=== PATIENT | male | born 1985 | race Caucasian/White ===

== ENCOUNTER 2020-05-07 21:42 | Emergency (ER) | payer OTHER, SELFPAY ==
[2020-05-07 21:58] VITALS: BP 150/74; PULSE 97; RESP 18; O2SAT 98
[2020-05-07 22:00] VITALS: BP 150/74; PULSE 102; RESP 18; TEMP 37; O2SAT 99; BMI 27.1
--- NOTE | 2020-05-07 23:42 | PC.NURSE ---
Multiple raised and hard areas on arms/leg/neck from IV drug use. Tender to touch. Pt wanting rehab/detox.
[2020-05-07 23:59] LABS: COVID19 -Nasal RAPID Negative (Negative)
--- NOTE | 2020-05-08 00:11 | ED.SKABFB ---
HPI - Skin/Abscess/Foreign Bdy General Chief complaint: Skin/Abscess/Foreign Body Stated complaint: abscess's all over Time Seen by Provider: 05/07/20 21:50 Source: patient Mode of arrival: Ambulatory Limitations: no limitations History of Present Illness HPI narrative: 35-year-old gentleman with a history of opiate use disorder who presents with multiple areas of concern over his body for abscess formation. He has been using as much is 1.5 g of IV heroin a day over the last couple of days has been trying to cut back in his only been using half a g of heroin a day. He has limited IV access at this point and is resorting to multiple pokes and even using neck veins. He has seen at prescriber in [place] who is given him Subutex but he has not filled this. Over the last 2 and half years he has had episodes of little use, heavy use, Suboxone, Subutex and methadone use. He is interested in detox and does want to get to a healthier point and away from heroin. His biggest fear in restarting Suboxone his 1st 24 hours of withdrawal required. He notes that he gets very depressed and it takes about a week before he is feeling better. He has never tried to kill self and does not describe suicidal ideation. Related Data Home Medications Medication Instructions Recorded Confirmed Fexofenadine Hydrochloride 60 mg PO Q DAY #0 03/09/10 (Della) oxycodone-acetaminophen [Percocet] #0 06/01/17 Previous Rx's Medication Instructions Recorded hydrocodone-acetaminophen [[place]] 1 - 2 tab PO Q6HP PRN #5 tab 06/01/17 tamsulosin [Flomax] 0.4 mg PO QDAY #7 cap 06/01/17 buprenorphine-naloxone 3 film SL DAILY #15 each 05/08/20 clindamycin HCl 300 mg PO Q8H #21 cap 05/08/20 sulfamethoxazole-trimethoprim 1 tab PO BID #14 tab 05/08/20 Allergies Allergy/AdvReac Type Severity Reaction Status Date / Time No Known Drug Allergies Allergy Verified 05/07/20 22:31 Review of Systems Review of Systems Narrative: Pertinent positive and negative findings as per HPI Remainder of review of systems is otherwise unremarkable for Constitutional: Fevers, chills, weakness ENT: No sore throat, neck pain, ear pain CV: Chest pain, palpitations, dyspnea on exertion Respiratory: Cough, wheeze, dyspnea GI: Nausea, vomiting, diarrhea, change in bowel habits, black or bloody stools : Dysuria, hematuria, flank pain MS: Muscle weakness, numbness, joint swelling or warmth Neuro: Syncope, dizziness, tingling Patient History Medical History (Updated 05/08/20 @ 00:22 by Janki Pabon MD) Opioid use disorder (Acute) Social History Smoking Status: Current every day smoker Smoking Status: Current every day smoker alcohol intake frequency: 0-2 drinks per day Substance Use Type: heroin and methamphetamine Exam Narrative Exam Narrative: General: no acute distress. Able to give a complete and coherent history. HEENT: Moist mucous membranes, normal sclera with reactive pupils, Neck: No JVD, supple, right external jugular vessel with thrombophlebitis without cellulitis Respiratory: Lungs are clear to auscultation, no wheezing no rales no rhonchi. Full and symmetrical air movement Cardiac: Regular rate and rhythm no murmurs with careful auscultation, no bruits Abdomen: Soft nontender good bowel tones, no flank pain Skin: Warm and dry, multiple track tracy. Multiple areas of thrombophlebitis but no overt abscess, or cellulitis Neurologic: Grossly neurologically intact with no obvious asymmetries or abnormalities Extremities: No trauma, well perfused Psych: Cooperative, appropriate insight and affect Initial Vital Signs Initial Vital Signs: Vital Signs Pulse Rate 97 H 05/07/20 21:58 Respiratory Rate 18 05/07/20 21:58 Blood Pressure 150/74 H 05/07/20 21:58 Pulse Oximetry 98 05/07/20 21:58 Scores ABCD2 Citation: Lancet. 2006Sep 24;369(8166):283-92. Validation and refinement of scores to predict very early stroke risk after transient ischaemic attack. Haim SC1, Nel PM, Brianda MN, Jamison MF, Cyndi JS, Tyler AL, Antony S. Course Orders Ordered: ED Orders 05/07/20 23:35 COVID19 -ED/INPAT/OR/L&D Stat 05/08/20 00:15 Urinalysis and Microscopic Stat urine tox [Urine Drug Screen, Rapid] Stat Discontinued Medications Promethazine HCl (Phenergan 25 Mg Prepack) 1 bottle MISC SEEINSTR ONE Stop: 05/08/20 00:23 Last Admin: 05/08/20 00:56 Dose: 1 bottle Documented by: VALENTINE Vital Signs Vital signs: Vital Signs - 8 hr 05/07/20 21:58 05/07/20 22:00 05/08/20 01:03 Temperature 98.6 F 98.8 F Pulse Rate 97 H 102 H 89 Respiratory Rate 18 18 12 Blood Pressure 150/74 H 150/74 H 160/74 H Pulse Oximetry 98 99 96 MDM - Skin/Abscess/Foreign Bdy Medical Records Attestation: I reviewed the patient's medical records. Lab Data Labs: Lab Results 05/07/20 05/08/20 05/08/20 Range/Units 23:35 00:15 00:15 Urine Color Yellow Urine Appearance Clear Urine pH 5.5 (4.5-8.0) Ur Specific [place] >=1.030 H (1.000-1.035) Urine Protein Negative (Negative) Urine Glucose (UA) Negative (Negative) g/dL Urine Ketones Negative (NEGATIVE) Urine Occult Blood Negative (Negative) Urine Nitrate Negative (Negative) Urine Bilirubin Negative (NEGATIVE) Urine Urobilinogen 0.2 (0.2) E.U./dL Ur Leukocyte Esterase Negative (NEGATIVE) Urine RBC None seen (0-5/HPF) Urine WBC None seen (0-5/HPF) Urine Bacteria None seen (None) Ur Culture Indicated? Cult not indicated Micro UA Comment Microscopic normal U Opiates 300ng/mL cut Positive H (Negative) Ur Oxycodone Screen Negative (Negative) Urine Methadone Screen Negative (Negative) Ur Barbiturates Screen Negative (Negative) U Tricyclic Antidepress Negative (Negative) Ur Phencyclidine Scrn Negative (Negative) Ur Amphetamines Screen Positive H (Negative) U Methamphetamines Scrn Positive H (Negative) Ur MDMA Scrn (Ecstasy) Negative (Negative) U Benzodiazepines Scrn Negative (Negative) Urine Cocaine Screen Negative (Negative) U Marijuana (THC) Screen Negative (Negative) COVID-19 PCR Negative (Negative) MDM Narrative Medical decision making narrative: Opioid use disorder with no evidence of immediate abscess. Minor areas of superficial infection firm multiple different injection sites. He is interested in crisis respite. He understands the need for moderate withdrawal symptoms prior to starting buprenorphine. At home he has a written prescription for Subutex that he has not yet filled. Will give him a 5 day prescription [facility] He says in the past he has been successful with 32 mg of Subutex daily. As he describes using only half a g a day of heroin over the last week or so I am going to suggest that we start with 16 mg a suboxone in the morning and 8 mg in the evening. He will need to follow-up with his Suboxone provider in [place] once he is released from detox. He is medically clear for detox and has screened for detox, beds are available paperwork will be done. He will be discharged with Septra and clindamycin for superficial skin infections at various injection sites, Phenergan for nausea and 5 days of Suboxone, 24 mg a day. Discharge Plan Departure Patient Disposition: Home Clinical Impression: Opioid use disorder, Cellulitis Discharge Date/Time: 05/08/20 01:10 Instructions: DI for Substance Use Disorder, DI for Skin Abscess Activity Restrictions/Additional Instructions: Thank you for coming in today [facility] I hope that this detox day and getting transition to Suboxone will be a successful 1st step in pathway back to recovery For nausea, please use Phenergan every 8 hours as needed When you are in significant withdrawal you may take the 1st dose of Suboxone. As the heroin that you have been using very likely also includes fentanyl, with this 1st dose I would recommend beginning with 4 mg sublingual. As long as you are not feeling worse, you may take an additional 4 mg. If after 8 mg you still do not feel sick and are beginning to feel better but it feels like it is not enough, you may take an additional 8 mg. If at any point you begin to feel more ill, please spit-out the dose currently under your tongue and wait an additional 12 hours before you try again. Eventually the dose that I believe will be best for you to continue will be 16 mg sublingual in the morning, 8 mg sublingual at night. Covid screeing: No fever, no cough and no respiratory complaints suggestive of Covid. Rapid covid screen negative 05/08/2020 Prescriptions: New buprenorphine-naloxone 8-2 mg film 3 film SL DAILY Qty: 15 RF: 0 sulfamethoxazole-trimethoprim 800-160 mg tablet 1 tab PO BID Qty: 14 RF: 0 clindamycin HCl 300 mg capsule 300 mg PO Q8H Qty: 21 RF: 0 No Action Fexofenadine Hydrochloride (Della) 60 mg PO Q DAY Qty: 0 RF: 0 oxycodone-acetaminophen [Percocet] 5 MG/325 MG tablet Qty: 0 RF: 0 tamsulosin [Flomax] 0.4 MG capsule,extended release 24hr 0.4 mg PO QDAY Qty: 7 RF: 0 hydrocodone-acetaminophen [[place]] 5 MG/325 MG tablet 1 - 2 tab PO Q6HP PRNQty: 5 RF: 0
[2020-05-08 00:23] LABS: Bacteria Urine None Seen; RBC Urine None Seen (0-5/HPF); WBC Urine None Seen (0-5/HPF)
[2020-05-08 00:28] LABS: Appearance Urine UA CLEAR; Bilirubin Urine UA NEGATIVE (NEGATIVE); Color Urine UA YELLOW; Glucose Urine UA NEGATIVE (Negative); Ketones Urine UA NEGATIVE (NEGATIVE); Leukocyte Esterase Urine UA NEGATIVE (NEGATIVE); Nitrite Urine UA NEGATIVE (Negative); Occult Blood Urine UA NEGATIVE (Negative); Protein Urine UA NEGATIVE (Negative); Specific Gravity Urine UA >=1.030 (1.000-1.035); Urobilinogen Urine UA 0.2 E.U./dL (0.2); pH Urine UA 5.5 (4.5-8.0)
[2020-05-08 00:29] LABS: UR Morphine/Opiate cutoff 300 Positive (Negative); Ur Creatinine Normal (Normal); Ur Specific Gravity Normal (Normal); Urine Amphetamines Positive (Negative); Urine Cocaine Negative (Negative); Urine Methamphetamines Positive (Negative); Urine Tetrahydrocannabinol Negative (Negative); Urine pH Normal (Normal)
[2020-05-08 00:30] LABS: Urine Barbiturates Negative (Negative); Urine Benzodiazepines Negative (Negative); Urine MDMA Negative (Negative); Urine Methadone Negative (Negative); Urine Oxycodone Negative (Negative); Urine Phencyclidine Negative (Negative); Urine Tricyclic Antidepressant Negative (Negative)
[2020-05-08 00:32] LABS: Culture Indicated Urine Cult Not Indicated; Urine Comments Microscopic Normal
[2020-05-08] MEDS: PROMETHAZINE 25 MG PREPACK 1 BOTTLE MISC (00:56)
[2020-05-08 01:03] VITALS: BP 160/74; PULSE 89; RESP 12; TEMP 37.1; O2SAT 96
== END 2020-05-08 01:10 | disposition home or self-care (01) ==
PROVIDERS: Emergency Provider Emergency Medicine
DX: L03.818 Cellulitis of other sites (principal); L02.818 Cutaneous abscess of other sites; F11.99 Opioid use, unspecified with unspecified opioid-induced disorder
CPT/HCPCS: 80305; 81001; 87635; 99281; 99283

== ENCOUNTER 2020-12-18 15:21 | Observation (INO) | payer OTHER, SELFPAY ==
[2020-12-18] VITALS (17 sets, daily range): BP systolic 126–151; BP diastolic 87–99; PULSE 95–132; RESP 15–68; TEMP 36.6–37.1; O2SAT 94–100; BMI 27.8
--- NOTE | 2020-12-18 15:37 | ED_ITS ---
HPI - Skin/Abscess/Foreign Bdy <Marian Vernon DO - Last Filed: 12/19/20 07:59> General Chief complaint: Skin/Abscess/Foreign Body Stated complaint: abscess on neck Time Seen by Provider: 12/18/20 15:32 Source: patient and old records reviewed Mode of arrival: Ambulatory Limitations: no limitations History of Present Illness HPI narrative: This is a 35-year-old male who comes to the emergency department with complaint of abscess in swelling of the left neck. Patient states that he has been injecting recently into that area and developed redness and swelling and signs of infection. He has not had any active fevers but has felt ill. He has pain at that area he denies any pain in the back of his neck other than that he has had discomfort from holding his head slightly turned from the swelling and discomfort. He denies any airway impingement, difficulty with breathing, no changes to voice, no stridor, wheezing, no shortness of breath or chest pain or pressure. He denies any nausea or vomiting. He denies any other GI or urinary symptoms. Patient states that he has had abscesses in multiple locations in the past. He was uncomfortable trying to drain it himself based on the location and came to the emergency department for assistance. Has used IV drugs intermittently. He has been on Subutex recently but states he has not had his last several doses. He denies any other medications regularly. Patient does use tobacco regularly. Related Data Previous Rx's Medication Instructions Recorded amoxicillin-pot clavulanate 1 tab PO BID #14 tab 12/19/20 [Augmentin] clindamycin HCl 300 mg PO TID #21 cap 12/19/20 Allergies Allergy/AdvReac Type Severity Reaction Status Date / Time No Known Drug Allergies Allergy Verified 05/07/20 22:31 Review of Systems <DO Sharlene Mccullough Last Filed: 12/19/20 07:59> Review of Systems ROS Unobtainable: All systems reviewed & are unremarkable except as noted in HPI and below Patient History <Marian Vernon DO - Last Filed: 12/19/20 07:59> Medical History Heroin abuse IVDU (intravenous drug user) Methamphetamine abuse Opioid use disorder Surgical History No history of previous surgery Family History Father Diabetes mellitus Mother Skin cancer Social History household members: spouse and children Smoking Status: Current every day smoker alcohol intake: former Smoking Status: Current every day smoker alcohol intake frequency: 0-2 drinks per day Substance Use Type: heroin and methamphetamine Exam <Marian Vernon, DO - Last Filed: 12/19/20 07:59> Narrative Exam Narrative: GEN: Well-nourished male, alert and oriented x 3, patient appears to be in [id number] distress. HEENT: Atraumatic, pupils are equal round reactive to light, extraocular movements are intact, Throat is clear without any exudates, erythema, tonsillar enlargement or uvular deviation, patient has swelling, erythema and induration of the left neck at the sternoclavicular junction and just adjacent. Patient has tenderness to the area. There is an area of about 4 cm of swelling and erythema without any extension. Patient prefers to hold his neck rotated to the right and side bent right. But is able to rotate his neck. He does not have any tenderness of the cervical spine. No stridor, no hoarseness or muffled voice. Patient is able to swallow his secretions without issue. HEART: Regular rate and rhythm without murmur, clicks, rubs. LUNGS:Lungs clear to auscultation, no wheezes, rales, crackles, chest moves symmetrically ABD:bowel sounds normal, soft, non-tender, no guarding, rebound, rigidity, no masses noted, no hepatosplenomegaly MSCL: Non-tender, full range of motion, normal gait NEURO:CN 2-12 intact, sensation normal SKIN: Please see above. Patient does have skin changes consistent with prior abscess is healing in varying stages. Initial Vital Signs Initial Vital Signs: Vital Signs Temperature 98.7 F 12/18/20 15:27 Pulse Rate 118 H 12/18/20 15:27 Respiratory Rate 18 12/18/20 15:27 Blood Pressure 137/99 H 12/18/20 15:27 Pulse Oximetry 96 12/18/20 15:27 <Jan Garcia, DO - Last Filed: 12/18/20 22:23> Initial Vital Signs Initial Vital Signs: Vital Signs Temperature 98.7 F 12/18/20 15:27 Pulse Rate 118 H 12/18/20 15:27 Respiratory Rate 18 12/18/20 15:27 Blood Pressure 137/99 H 12/18/20 15:27 Pulse Oximetry 96 12/18/20 15:27 Course <Marian Vernon, DO - Last Filed: 12/19/20 07:59> Orders Ordered: Discontinued Medications Al Hydrox/Mg Hydrox/Simethicone (Mag Hydrox/Alum/Simeth 30 Ml Udc) 30 ml PO Q6HR PRN PRN Reason: Dyspepsia Amoxicillin/Clavulanate Potassium (Amoxicillin/Clav 875/125 Mg) 1 tab PO BID DANIEL Last Admin: 12/18/20 23:09 Dose: 1 tab Documented by: VENUS Enoxaparin Sodium (Enoxaparin 40 Mg/0.4 Ml Syringe) 40 mg SUBCUT DAILY [facility] Hydroxyzine Pamoate (Hydroxyzine Pamoate 25 Mg Capsule) 50 mg PO Q6HR PRN PRN Reason: Agitation Sodium Chloride (Normal Saline 0.9%) 1,000 mls @ 1,000 mls/hr IV BOLUS ONE Stop: 12/18/20 20:14 Last Infusion: 12/18/20 21:18 Dose: 0 mls/hr Documented by: Admin: 12/18/20 19:26 Dose: 1,000 mls/hr Documented by: DAE Clindamycin Phosphate (Cleocin) 900 mg in 50 mls @ 50 mls/hr IV NOW ONE Stop: 12/18/20 20:14 Last Infusion: 12/18/20 19:54 Dose: 0 mls/hr Documented by: Admin: 12/18/20 19:28 Dose: 50 mls/hr Documented by: DAE Lactated Ringer's (Lactated Ringers) 1,000 mls @ 100 mls/hr IV CONT DANIEL Last Admin: 12/18/20 22:48 Dose: 100 mls/hr Documented by: VENUS Clindamycin Phosphate (Cleocin) 600 mg in 50 mls @ 50 mls/hr IV Q8H DANIEL Clindamycin Phosphate (Cleocin) 600 mg in 50 mls @ 50 mls/hr IV Q8H [facility] Last Admin: 12/19/20 03:02 Dose: Not Given Documented by: KEISHA Ibuprofen (Ibuprofen 600 Mg Tablet) 600 mg PO Q6HR PRN PRN Reason: Fever/Mild Pain (1-3) Last Admin: 12/18/20 23:09 Dose: 600 mg Documented by: VENUS Ketorolac Tromethamine (Ketorolac 60 Mg/2 Ml Vial) 30 mg IV NOW ONE Stop: 12/18/20 16:07 Last Admin: 12/18/20 19:32 Dose: Not Given Documented by: DAE Ketorolac Tromethamine (Ketorolac 60 Mg/2 Ml Vial) 30 mg IM NOW ONE Stop: 12/18/20 16:51 Last Admin: 12/18/20 19:33 Dose: Not Given Documented by: DAE Ketorolac Tromethamine (Ketorolac 60 Mg/2 Ml Vial) 60 mg IM NOW ONE Stop: 12/18/20 17:09 Last Admin: 12/18/20 17:09 Dose: 60 mg Documented by: SWATHI Lidocaine/Epinephrine (Lidocaine 1% W/Epi) 4 ml INJ INTRA-OP ONE Stop: 12/18/20 21:02 Last Admin: 12/18/20 21:06 Dose: 4 ml Documented by: DAE Lorazepam (Lorazepam 1 Mg Tablet) 1 mg PO Q4HR [facility]; Protocol Last Admin: 12/19/20 03:02 Dose: Not Given Documented by: KEISHA Naloxone HCl (Naloxone 0.4 Mg/Ml Vial) 0.2 mg IV Q2MIN PRN PRN Reason: Opiate Reversal Nicotine (Nicotine 21 Mg Patch) 21 mg TOP NOW ONE Stop: 12/18/20 17:09 Last Admin: 12/18/20 17:14 Dose: 21 mg Documented by: SWATHI Ondansetron HCl (Ondansetron 4 Mg/2 Ml Inj) 4 mg IV Q8HR [facility] Last Admin: 12/19/20 03:02 Dose: Not Given Documented by: KEISHA Pantoprazole Sodium (Pantoprazole 20 Mg Tablet) 20 mg PO 0600 [facility] Trazodone HCl (Trazodone 50 Mg Tablet) 50 mg PO BEDTIME [facility] Last Admin: 12/19/20 00:48 Dose: 50 mg Documented by: KEISHA Reevaluation(s) Reevaluation #1: Patient HR has increased while in department. Patient has been feeling like he is having some withdrawl symptoms. PICC line nurse is in room for access. Time: 18:23 Vital Signs Vital signs: Vital Signs - 8 hr 12/18/20 15:27 12/18/20 17:00 12/18/20 17:30 Temperature 98.7 F Pulse Rate 118 H 95 H 107 H Respiratory Rate 18 Blood Pressure 137/99 H Pulse Oximetry 96 97 96 12/18/20 18:00 12/18/20 18:10 12/18/20 18:11 Temperature Pulse Rate 125 H 132 H Respiratory Rate 22 Blood Pressure 151/99 H 151/99 H Pulse Oximetry 97 100 100 12/18/20 18:30 Temperature Pulse Rate 119 H Respiratory Rate 21 Blood Pressure Pulse Oximetry 98 <Jan Garcia DO - Last Filed: 12/18/20 22:23> Orders Ordered: Discontinued Medications Al Hydrox/Mg Hydrox/Simethicone (Mag Hydrox/Alum/Simeth 30 Ml Udc) 30 ml PO Q6HR PRN PRN Reason: Dyspepsia Amoxicillin/Clavulanate Potassium (Amoxicillin/Clav 875/125 Mg) 1 tab PO BID [facility] Last Admin: 12/18/20 23:09 Dose: 1 tab Documented by: VENUS Enoxaparin Sodium (Enoxaparin 40 Mg/0.4 Ml Syringe) 40 mg SUBCUT DAILY [facility] Hydroxyzine Pamoate (Hydroxyzine Pamoate 25 Mg Capsule) 50 mg PO Q6HR PRN PRN Reason: Agitation Sodium Chloride (Normal Saline 0.9%) 1,000 mls @ 1,000 mls/hr IV BOLUS ONE Stop: 12/18/20 20:14 Last Infusion: 12/18/20 21:18 Dose: 0 mls/hr Documented by: Admin: 12/18/20 19:26 Dose: 1,000 mls/hr Documented by: DAE Clindamycin Phosphate (Cleocin) 900 mg in 50 mls @ 50 mls/hr IV NOW ONE Stop: 12/18/20 20:14 Last Infusion: 12/18/20 19:54 Dose: 0 mls/hr Documented by: Admin: 12/18/20 19:28 Dose: 50 mls/hr Documented by: DAE Lactated Ringer's (Lactated Ringers) 1,000 mls @ 100 mls/hr IV CONT DANIEL Last Admin: 12/18/20 22:48 Dose: 100 mls/hr Documented by: VENUS Clindamycin Phosphate (Cleocin) 600 mg in 50 mls @ 50 mls/hr IV Q8H DANIEL Clindamycin Phosphate (Cleocin) 600 mg in 50 mls @ 50 mls/hr IV Q8H DANIEL Last Admin: 12/19/20 03:02 Dose: Not Given Documented by: KEISHA Ibuprofen (Ibuprofen 600 Mg Tablet) 600 mg PO Q6HR PRN PRN Reason: Fever/Mild Pain (1-3) Last Admin: 12/18/20 23:09 Dose: 600 mg Documented by: VENUS Ketorolac Tromethamine (Ketorolac 60 Mg/2 Ml Vial) 30 mg IV NOW ONE Stop: 12/18/20 16:07 Last Admin: 12/18/20 19:32 Dose: Not Given Documented by: DAE Ketorolac Tromethamine (Ketorolac 60 Mg/2 Ml Vial) 30 mg IM NOW ONE Stop: 12/18/20 16:51 Last Admin: 12/18/20 19:33 Dose: Not Given Documented by: DAE Ketorolac Tromethamine (Ketorolac 60 Mg/2 Ml Vial) 60 mg IM NOW ONE Stop: 12/18/20 17:09 Last Admin: 12/18/20 17:09 Dose: 60 mg Documented by: SWATHI Lidocaine/Epinephrine (Lidocaine 1% W/Epi) 4 ml INJ INTRA-OP ONE Stop: 12/18/20 21:02 Last Admin: 12/18/20 21:06 Dose: 4 ml Documented by: DAE Lorazepam (Lorazepam 1 Mg Tablet) 1 mg PO Q4HR [facility]; Protocol Last Admin: 12/19/20 03:02 Dose: Not Given Documented by: KEISHA Naloxone HCl (Naloxone 0.4 Mg/Ml Vial) 0.2 mg IV Q2MIN PRN PRN Reason: Opiate Reversal Nicotine (Nicotine 21 Mg Patch) 21 mg TOP NOW ONE Stop: 12/18/20 17:09 Last Admin: 12/18/20 17:14 Dose: 21 mg Documented by: SWATHI Ondansetron HCl (Ondansetron 4 Mg/2 Ml Inj) 4 mg IV Q8HR [facility] Last Admin: 12/19/20 03:02 Dose: Not Given Documented by: KEISHA Pantoprazole Sodium (Pantoprazole 20 Mg Tablet) 20 mg PO 0600 DANIEL Trazodone HCl (Trazodone 50 Mg Tablet) 50 mg PO BEDTIME [facility] Last Admin: 12/19/20 00:48 Dose: 50 mg Documented by: KEISHA Vital Signs Vital signs: Vital Signs - 8 hr 12/18/20 15:27 12/18/20 17:00 12/18/20 17:30 Temperature 98.7 F Pulse Rate 118 H 95 H 107 H Respiratory Rate 18 Blood Pressure 137/99 H Pulse Oximetry 96 97 96 12/18/20 18:00 12/18/20 18:10 12/18/20 18:11 Temperature Pulse Rate 125 H 132 H Respiratory Rate 22 Blood Pressure 151/99 H 151/99 H Pulse Oximetry 97 100 100 12/18/20 18:30 Temperature Pulse Rate 119 H Respiratory Rate 21 Blood Pressure Pulse Oximetry 98 MDM - Skin/Abscess/Foreign Bdy <Marian Vernon, - Last Filed: 12/19/20 07:59> Lab Data Attestation: I reviewed the patient's lab results. Result diagrams: 12/18/20 17:03 12/18/20 17:03 Labs: Lab Results 12/18/20 12/18/20 12/18/20 Range/Units 16:20 17:03 17:03 WBC 15.4 H (4.5-11.0) X10^3/uL RBC 4.41 L (4.5-5.9) X10^6/uL Hgb 11.7 L (13.5-17.5) g/dL Hct 35.4 L (41-53) % MCV 80.2 (80-100) fL MCH 26.4 (26-34) PG MCHC 33.0 (30-36) % RDW 13.3 (11.6-14.8) % Plt Count 324 (150-400) X10^3/uL Neut % (Auto) 71.6 (50-75) % Lymph % (Auto) 19.9 L (25-40) % Whitley % (Auto) 7.0 (3-14) % Eos % (Auto) 1.0 L (2-4) % Baso % (Auto) 0.5 (0-2) % Neut # (Auto) 97182 H (9271-5017) /uL Lymph # (Auto) 3100 (2432-0706) /uL Whitley # (Auto) 1100 H (0-900) /uL Eos # (Auto) 200 (0-450) /uL Baso # (Auto) 100 (0-100) /uL Sodium 136 L (137-145) mmol/L Potassium 3.8 (3.4-5.1) mmol/L Chloride 99 (98-107) mmol/L Carbon Dioxide 28 (22-32) mmol/L BUN 10 (9-20) mg/dL Creatinine 0.57 L (0.66-1.25) mg/dL Estimated GFR > 60.0 (>60) mL/min BUN/Creatinine Ratio 17.5 (6-22) Glucose 116 H (70-100) mg/dL Lactate (0.7-2.1) mmol/L Calcium 9.2 (8.4-10.2) mg/dL Magnesium (1.6-2.3) mg/dL Total Bilirubin 0.4 (0.2-1.3) mg/dL AST 29 (17-59) IU/L ALT 25 (<50) IU/L Alkaline Phosphatase 116 (38-126) U/L C-Reactive Protein (<1.0) mg/dL Total Protein 7.4 (6.3-8.2) g/dL Albumin 3.9 (3.5-5.0) g/dL Globulin 3.5 (1.7-4.1) g/dL Albumin/Globulin Ratio 1.1 (1.0-2.8) Procalcitonin 0.08 (<0.5) ng/mL SARS-CoV-2 (PCR) Negative (Negative) 12/18/20 12/18/20 12/18/20 Range/Units 17:03 17:03 17:03 WBC (4.5-11.0) X10^3/uL RBC (4.5-5.9) X10^6/uL Hgb (13.5-17.5) g/dL Hct (41-53) % MCV (80-100) fL MCH (26-34) PG MCHC (30-36) % RDW (11.6-14.8) % Plt Count (150-400) X10^3/uL Neut % (Auto) (50-75) % Lymph % (Auto) (25-40) % Whitley % (Auto) (3-14) % Eos % (Auto) (2-4) % Baso % (Auto) (0-2) % Neut # (Auto) (8617-8550) /uL Lymph # (Auto) (6398-7827) /uL Whitley # (Auto) (0-900) /uL Eos # (Auto) (0-450) /uL Baso # (Auto) (0-100) /uL Sodium (137-145) mmol/L Potassium (3.4-5.1) mmol/L Chloride (98-107) mmol/L Carbon Dioxide (22-32) mmol/L BUN (9-20) mg/dL Creatinine (0.66-1.25) mg/dL Estimated GFR (>60) mL/min BUN/Creatinine Ratio (6-22) Glucose (70-100) mg/dL Lactate 1.0 (0.7-2.1) mmol/L Calcium (8.4-10.2) mg/dL Magnesium 2.2 (1.6-2.3) mg/dL Total Bilirubin (0.2-1.3) mg/dL AST (17-59) IU/L ALT (<50) IU/L Alkaline Phosphatase (38-126) U/L C-Reactive Protein 11.4 H (<1.0) mg/dL Total Protein (6.3-8.2) g/dL Albumin (3.5-5.0) g/dL Globulin (1.7-4.1) g/dL Albumin/Globulin Ratio (1.0-2.8) Procalcitonin (<0.5) ng/mL SARS-CoV-2 (PCR) (Negative) MDM Narrative Medical decision making narrative: Patient signed out to Dr. Garcia while awaiting imaging. Patient likely has abscess but based on the location which is over several important vascular structures it was felt to be prudent to obtain imaging. Patient does meet septic criteria at this time. IV antibiotics, flu ids started patient had just had access obtained. Patient on recheck is tachycardic but in no respiratory distress and headed for imaging. <Jan Garcia, DO - Last Filed: 12/18/20 22:23> Lab Data Attestation: I reviewed the patient's lab results. Labs: Lab Results 12/18/20 12/18/20 12/18/20 Range/Units 16:20 17:03 17:03 WBC 15.4 H (4.5-11.0) X10^3/uL RBC 4.41 L (4.5-5.9) X10^6/uL Hgb 11.7 L (13.5-17.5) g/dL Hct 35.4 L (41-53) % MCV 80.2 (80-100) fL MCH 26.4 (26-34) PG MCHC 33.0 (30-36) % RDW 13.3 (11.6-14.8) % Plt Count 324 (150-400) X10^3/uL Neut % (Auto) 71.6 (50-75) % Lymph % (Auto) 19.9 L (25-40) % Whitley % (Auto) 7.0 (3-14) % Eos % (Auto) 1.0 L (2-4) % Baso % (Auto) 0.5 (0-2) % Neut # (Auto) 25890 H (6644-5701) /uL Lymph # (Auto) 3100 (3705-5129) /uL Whitley # (Auto) 1100 H (0-900) /uL Eos # (Auto) 200 (0-450) /uL Baso # (Auto) 100 (0-100) /uL Sodium 136 L (137-145) mmol/L Potassium 3.8 (3.4-5.1) mmol/L Chloride 99 (98-107) mmol/L Carbon Dioxide 28 (22-32) mmol/L BUN 10 (9-20) mg/dL Creatinine 0.57 L (0.66-1.25) mg/dL Estimated GFR > 60.0 (>60) mL/min BUN/Creatinine Ratio 17.5 (6-22) Glucose 116 H (70-100) mg/dL Lactate (0.7-2.1) mmol/L Calcium 9.2 (8.4-10.2) mg/dL Magnesium (1.6-2.3) mg/dL Total Bilirubin 0.4 (0.2-1.3) mg/dL AST 29 (17-59) IU/L ALT 25 (<50) IU/L Alkaline Phosphatase 116 (38-126) U/L C-Reactive Protein (<1.0) mg/dL Total Protein 7.4 (6.3-8.2) g/dL Albumin 3.9 (3.5-5.0) g/dL Globulin 3.5 (1.7-4.1) g/dL Albumin/Globulin Ratio 1.1 (1.0-2.8) Procalcitonin 0.08 (<0.5) ng/mL SARS-CoV-2 (PCR) Negative (Negative) 12/18/20 12/18/20 12/18/20 Range/Units 17:03 17:03 17:03 WBC (4.5-11.0) X10^3/uL RBC (4.5-5.9) X10^6/uL Hgb (13.5-17.5) g/dL Hct (41-53) % MCV (80-100) fL MCH (26-34) PG MCHC (30-36) % RDW (11.6-14.8) % Plt Count (150-400) X10^3/uL Neut % (Auto) (50-75) % Lymph % (Auto) (25-40) % Whitley % (Auto) (3-14) % Eos % (Auto) (2-4) % Baso % (Auto) (0-2) % Neut # (Auto) (6926-2860) /uL Lymph # (Auto) (1836-5179) /uL Whitley # (Auto) (0-900) /uL Eos # (Auto) (0-450) /uL Baso # (Auto) (0-100) /uL Sodium (137-145) mmol/L Potassium (3.4-5.1) mmol/L Chloride (98-107) mmol/L Carbon Dioxide (22-32) mmol/L BUN (9-20) mg/dL Creatinine (0.66-1.25) mg/dL Estimated GFR (>60) mL/min BUN/Creatinine Ratio (6-22) Glucose (70-100) mg/dL Lactate 1.0 (0.7-2.1) mmol/L Calcium (8.4-10.2) mg/dL Magnesium 2.2 (1.6-2.3) mg/dL Total Bilirubin (0.2-1.3) mg/dL AST (17-59) IU/L ALT (<50) IU/L Alkaline Phosphatase (38-126) U/L C-Reactive Protein 11.4 H (<1.0) mg/dL Total Protein (6.3-8.2) g/dL Albumin (3.5-5.0) g/dL Globulin (1.7-4.1) g/dL Albumin/Globulin Ratio (1.0-2.8) Procalcitonin (<0.5) ng/mL SARS-CoV-2 (PCR) (Negative) Imaging Data CT soft tissue neck: Radiologist's Impression: [address] Scan ReportSigned Patient: Bennie Combs CMR#: [id number]: 1985Acct:[id number]/Sex: 35 / MDate of Service: 12/18/20Loc: EDAccession Number: [id number] Procedure: CT soft tissue neck w con Ordering Provider: Marian Vernon D.O. PROCEDURE: CT SOFT TISSUE NECK W CON INDICATIONS: abscess/cellulitis l neck, IVDA, injected at site TECHNIQUE: After the administration of intravenous contrast, 3.0 mm axial sections acquired from the sella to the aortic arch. Additional oblique axial 3.0 mm sections acquired through the pharynx. 3 mm thick coronal and sagittal reformats were generated. For radiation dose reduction, the following was used: automated exposure control. COMPARISON: None. FINDINGS: Image quality: Excellent. Lymph nodes: Extensive left cervical and mild right cervical chain adenopathy. Vessels: The left IJ is compressed by an enlarged turn clawtoe mastoid muscle but no visible thrombus. Neck spaces: There is asymmetric diffuse enlargement of the left sternocleidomastoid muscle, particularly caudally. At the level just below the thyroid cartilage, there is a peripherally enhancing intramuscular fluid collection in the sternocleidomastoid measuring 2.1 x 2.5 x 3.6 cm. There is overlying subcutaneous fat stranding and diffuse skin thickening. There is mild wqve-vd-piksw shift of the larynx with respect to the cervical spine. The left piriform sinus is not aerated. More cranially, para pharyngeal fat planes are normally maintained. There are no discrete mucosal lesions. Tonsillar pillars are symmetric. The epiglottis, true, and false vocal cords are normal. Glands: Beam hardening artifact precludes good visualization of the left parotid gland. The right appears normal. The submandibular glands appear normal. Thyroid gland is normal. Miscellaneous: Visualized brain and orbits appear normal. Lung apices appear clear. Superficial soft tissues appear normal. Bones: No suspicious bony lesions. There is partially imaged bilateral maxillary, right sphenoid, and ethmoid opacification. Mastoid cavities are normally aerated.. IMPRESSION: 1. 3.6 cm left sternocleidomastoid myositis and intramuscular abscess. 2. Reactive adenopathy throughout the neck. 3. Slight rightward shift due to SCM enlargement of the airway without airway compression. 4. Partially imaged sinus disease. Dictated by: Eula Busch M.D. on 12/18/2020 at 19:58 Approved by: Eula Busch M.D. on 12/18/2020 at 20:07 [facility] Narrative Medical decision making narrative: Dr Garcia: Received turned over from Dr. Vernon. Reviewed patient's history and physical. Reviewed his labs up to this point. Performed my own independent exam. CT scan does show a left sided abscess. When I went introduced myself to the patient he continued to have no respiratory distress. Was swallowing without any problems. Had an obvious cellulitis to his left neck. Patient has received antibiotics. I did discuss the case with Dr. Gonzalez who is on-call for your nose and throat who came into the emergency department and drained the abscess. I discussed the case with BALE PILER Tu the night hospitalist. She will admit for further evaluation and treatment. I discussed the admission with the patient. He expressed understanding and agreement. Discharge Plan Departure Patient Disposition: Admitted As Inpatient Clinical Impression: Cellulitis and abscess of neck Admit Date/Time: 12/18/20 21:25 Admit Provider: Karrie Mae
--- NOTE | 2020-12-18 16:06 | DI.CT.S_ITS ---
PROCEDURE: CT SOFT TISSUE NECK W CON INDICATIONS: abscess/cellulitis l neck, IVDA, injected at site TECHNIQUE: After the administration of intravenous contrast, 3.0 mm axial sections acquired from the sella to the aortic arch. Additional oblique axial 3.0 mm sections acquired through the pharynx. 3 mm thick coronal and sagittal reformats were generated. For radiation dose reduction, the following was used: automated exposure control. COMPARISON: None. FINDINGS: Image quality: Excellent. Lymph nodes: Extensive left cervical and mild right cervical chain adenopathy. Vessels: The left IJ is compressed by an enlarged turn clawtoe mastoid muscle but no visible thrombus. Neck spaces: There is asymmetric diffuse enlargement of the left sternocleidomastoid muscle, particularly caudally. At the level just below the thyroid cartilage, there is a peripherally enhancing intramuscular fluid collection in the sternocleidomastoid measuring 2.1 x 2.5 x 3.6 cm. There is overlying subcutaneous fat stranding and diffuse skin thickening. There is mild cmqe-gu-bzeeq shift of the larynx with respect to the cervical spine. The left piriform sinus is not aerated. More cranially, parapharyngeal fat planes are normally maintained. There are no discrete mucosal lesions. Tonsillar pillars are symmetric. The epiglottis, true, and false vocal cords are normal. Glands: Beam hardening artifact precludes good visualization of the left parotid gland. The right appears normal. The submandibular glands appear normal. Thyroid gland is normal. Miscellaneous: Visualized brain and orbits appear normal. Lung apices appear clear. Superficial soft tissues appear normal. Bones: No suspicious bony lesions. There is partially imaged bilateral maxillary, right sphenoid, and ethmoid opacification. Mastoid cavities are normally aerated.. IMPRESSION: 1. 3.6 cm left sternocleidomastoid myositis and intramuscular abscess. 2. Reactive adenopathy throughout the neck. 3. Slight rightward shift due to SCM enlargement of the airway without airway compression. 4. Partially imaged sinus disease. Dictated by: Eula Busch M.D. on 12/18/2020 at 19:58 Approved by: Eula Busch M.D. on 12/18/2020 at 20:07
--- NOTE | 2020-12-18 16:41 | PC.NURSE ---
PIV attempt x2 unsuccessful
[2020-12-18] MEDS: KETOROLAC 60 MG/2 ML VIAL IM (17:09)
[2020-12-18] MEDS: NICOTINE 21 MG PATCH TOP (17:14)
[2020-12-18 17:15] LABS: Add Manual Diff / Slide Review NO; Basophils Absolute Auto 100 /uL (0-100); Basophils Percent Auto 0.5 % (0-2); Eosinophils Absolute Auto 200 /uL (0-450); Hematocrit 35.4 % (41-53); Hemoglobin 11.7 g/dL (13.5-17.5); Lymphocytes Absolute Auto 3100 /uL (1100-4500); Lymphocytes Percent Auto 19.9 % (25-40); Mean Corpuscular Hemoglobin 26.4 PG (26-34); Mean Corpuscular Volume 80.2 fL (80-100); Monocytes Absolute Auto 1100 /uL (0-900); Neutrophils Absolute Auto 11000 /uL (1500-7000); Neutrophils Percent Auto 71.6 % (50-75); Platelet Count 324 X10^3/uL (150-400); Red Blood Cell Count 4.41 X10^6/uL (4.5-5.9); Red Cell Distribution Width 13.3 % (11.6-14.8); White Blood Cell Count 15.4 X10^3/uL (4.5-11.0)
--- NOTE | 2020-12-18 17:17 | PC.NURSE ---
PICC RN to come place IV line in order to given prescribed medications.
[2020-12-18 17:32] LABS: COVID19 - ADMIT (NP swab/PCR) Negative (Negative)
[2020-12-18 17:46] LABS: Alanine Aminotransferase 25 IU/L (<50); Albumin 3.9 g/dL (3.5-5.0); Albumin Globulin Ratio 1.1 (1.0-2.8); Alkaline Phosphatase 116 U/L (38-126); Aspartate Aminotransferase 29 IU/L (17-59); BUN Creatinine Ratio 17.5 (6-22); Bilirubin Total 0.4 mg/dL (0.2-1.3); Blood Urea Nitrogen 10 mg/dL (9-20); Calcium 9.2 mg/dL (8.4-10.2); Carbon Dioxide 28 mmol/L (22-32); Chloride 99 mmol/L (98-107); Estimated Glomerular Filt Rate > 60.0 mL/min (>60); Globulin 3.5 g/dL (1.7-4.1); Glucose 116 mg/dL (70-100); HEMOLYSIS < 15 (0-50); Potassium 3.8 mmol/L (3.4-5.1); Sodium 136 mmol/L (137-145); Total Protein 7.4 g/dL (6.3-8.2)
[2020-12-18 18:00] LABS: Procalcitonin 0.08 ng/mL (<0.5)
--- NOTE | 2020-12-18 18:13 | PC.NURSE ---
Pt placed on heart monitor for heart rate of 130's. Provider aware. Waiting for PICC placement.
--- NOTE | 2020-12-18 18:24 | PC.NURSE ---
PICC RN at bedside.
[2020-12-18] MEDS: SODIUM CHLORIDE 0.9% 1,000 ML 1000 ML IV (19:26)
[2020-12-18] MEDS: CLINDAMYCIN 900 MG/50 ML PIGGYBACK 50 MG IV (19:28)
[2020-12-18] MEDS: LIDOCAINE 1% W/EPI 4 ML INJ (21:06)
--- NOTE | 2020-12-18 22:01 | PM.HP.1 ---
History of Present Illness History of Present Illness Date Patient Seen: 12/18/20 Time Patient Seen: 22:01 Chief complaint: abscess on neck Narrative: Patient is a 35-year-old male Bennie Combs who presented to the ED with a chief complaint of abscess in swelling of the left neck. Patient states that he has been injecting heroin and methamphetamine recently into that area and developed redness and swelling and signs of infection approximately 4-5 days ago. He has not had any active fevers but has felt ill. He has pain at that area he denies any pain in the back of his neck other than that he has had discomfort from holding his head slightly turned from the swelling and discomfort. He denies any airway impingement, difficulty with breathing, no changes to voice, no stridor, wheezing, no shortness of breath or chest pain or pressure. He denies any nausea or vomiting. He denies any other GI or urinary symptoms. Patient states that he has had abscesses in multiple locations in the past. He was uncomfortable trying to drain it himself based on the location and came to the emergency department for assistance. Patient notes that he has been an IV drug user injecting heroin methadone since 2018 he reports that he had been clean for a year when he had a relapse a week and half ago has been injecting anywhere from a half a g to a g daily. He has been on Subutex recently but states he has not had his last several doses. He denies any other medications regularly. Patient does use tobacco regularly. He reports his last 0.5 g of injection was approximately at noon on 12/18/2020. Patient states that the aggressive neck pressure is relieved since having the abscess drained but is left with some stinging pain and has a mild headache denies chest pain shortness of breath, nausea, vomiting, diarrhea, body aches, chills, fever, neck pain is a 6/10. Patient is will thing down sandwiches and snack food without any difficulty of swallowing. Patient requested to be screened for HIV and hepatitis due to his IV high risk behavior. Patient's vital signs upon admit temp 98.7?, BP 151/99, HR 119 (tachycardic), RR 21 (tachypneic), 98% O2 saturation on room air. Labs: WBC 15.4, HGB 11.7, HCT 35.4, Na 136, creatinine 0.57, glucose 116. In ED patient qualified for SIRS criteria. CT soft left side of neck : 3.6 cm left sternocleidomastoid myositis and intramuscular abscess. Reactive adenopathy throughout the neck. Slight rightward shift due to SCM enlargement of the airway without airway compression. Partially imaged sinus disease. Dr. Gonzalez ENT did a bedside I&D of abscess in the ED, and placed a drain, collected wound cultures. Dr. Gonzalez stated that he did not need to consult on the patient while inpatient but rather the patient to follow with him in 1 week at his office for drain removal. Order dressing changes as needed when dressing becomes soiled. 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 Environment Been Physically Hurt or No Threatened By a Person Tobacco & Substance use: Smoking Status Current every day smoker alcohol intake frequency 0-2 drinks per day Substance Use Type heroin,methamphetamine IVDU Meds Home Medications and Allergies Home Medications Medication Instructions Recorded Confirmed Type buprenorphine HCl 8 mg SUBLINGUAL Q6H PRN MDD 4 tab 12/18/20 12/18/20 History Allergies Allergy/AdvReac Type Severity Reaction Status Date / Time No Known Drug Allergies Allergy Verified 05/07/20 22:31 Review of Systems Review of Systems ROS: Yes All systems reviewed with the patient and are negative except as otherwise documented Integumentary/Breasts Skin/Breast: Reports skin pain, Reports skin swelling (Left side of neck) and Reports wounds Exam Vital Signs (past 8 hours): - 12/18/20 15:27 12/18/20 17:00 12/18/20 17:30 Temperature 98.7 F Pulse Rate 118 H 95 H 107 H Respiratory Rate 18 Blood Pressure 137/99 H Pulse Oximetry 96 97 96 12/18/20 18:00 12/18/20 18:10 12/18/20 18:11 Temperature Pulse Rate 125 H 132 H Respiratory Rate 22 Blood Pressure 151/99 H 151/99 H Pulse Oximetry 97 100 100 12/18/20 18:30 Temperature Pulse Rate 119 H Respiratory Rate 21 Blood Pressure Pulse Oximetry 98 Oxygen Delivery Method Room Air Narrative Exam Narrative: General: Patient is a well-developed, well-nourished in no distress at this time. HEENT: Normocephalic, atraumatic, extraocular muscles intact, oral pharynx is clear and mucous membranes are moist. Neck is supple and symmetric, trachea is midline, patient has swelling, erythema and induration of the left neck at the sternoclavicular junction and just adjacent. Dressing in place with drain present and draining. Negative for JVD Chest: Normal AP diameter and contour without kyphoscoliosis, no nasal flaring, retractions, or tachypneic labored Lungs: Auscultation of all lung nuñez are clear without adventitious sounds, wheezes, rhonchi, or rales. Cardio: S1 & S2 with regular rate and rhythm without murmur, rubs, or gallops, no carotid bruit, no cardiac pulsations present. Abdomen: Soft nontender, negative for organomegaly, or masses. Bowel sounds are present in all 4 quadrants without guarding or rebound, no CVA tenderness. Musculoskeletal: Muscle strength and tone are equal within normal limits, no deformity, crepitus, effusions, cyanosis, clubbing or edema present. Full range of motion intact radial and pedal pulses are normal. Skin: Warm dry and intact without rashes, ulcerations or petechiae. Neuro: Alert and orientated x3, strength is +5/5 in all extremities, sensation to touch intact, no gross deficits noted of cranial nerves. Psych: Patient has a well-kept appearance, appropriate affect, mental status attitude thought context and judgment are appropriate for age. Objective Labs Result Diagrams: 12/18/20 17:03 12/18/20 17:03 Labs: Laboratory Results - last 24 hr 12/18/20 12/18/20 12/18/20 16:20 17:03 17:03 WBC 15.4 H RBC 4.41 L Hgb 11.7 L Hct 35.4 L MCV 80.2 MCH 26.4 MCHC 33.0 RDW 13.3 Plt Count 324 Neut % (Auto) 71.6 Lymph % (Auto) 19.[address] [place] % (Auto) 7.0 Eos % (Auto) 1.0 L Baso % (Auto) 0.5 Neut # (Auto) 99548 H Lymph # (Auto) 3100 [place] # (Auto) 1100 H Eos # (Auto) 200 Baso # (Auto) 100 Sodium 136 L Potassium 3.8 Chloride 99 Carbon Dioxide 28 BUN 10 Creatinine 0.57 L Estimated GFR > 60.0 BUN/Creatinine Ratio 17.5 Glucose 116 H Lactate Calcium 9.2 Total Bilirubin 0.4 AST 29 ALT 25 Alkaline Phosphatase 116 Total Protein 7.4 Albumin 3.9 Globulin 3.5 Albumin/Globulin Ratio 1.1 Procalcitonin 0.08 SARS-CoV-2 (PCR) Negative 12/18/20 17:03 WBC RBC Hgb Hct MCV MCH MCHC RDW Plt Count Neut % (Auto) Lymph % (Auto) [place] % (Auto) Eos % (Auto) Baso % (Auto) Neut # (Auto) Lymph # (Auto) [place] # (Auto) Eos # (Auto) Baso # (Auto) Sodium Potassium Chloride Carbon Dioxide BUN Creatinine Estimated GFR BUN/Creatinine Ratio Glucose Lactate 1.0 Calcium Total Bilirubin AST ALT Alkaline Phosphatase Total Protein Albumin Globulin Albumin/Globulin Ratio Procalcitonin SARS-CoV-2 (PCR) Assessment & Plan Assessment & Plan narrative: This patient requires acute care inpatient hospital management for abscess cellulitis of the left side of neck,after failing outpatient management. The patient is at much higher risk for medical and surgical complications because of his IV heroin and methamphetamine abuse. These factors increase the difficulty and complexity of medical and surgical interventions and increases the chances of poor outcomes such as morbidity and mortality, as well as complications such as endocarditis. The patient's substance and tobacco abuse will impact his oxygenation, which will likely contribute to poor wound healing and recovery. 1.Cellulitis/Abcess left side of neck, acute on chronic, purulent, secondary to IV heroin and methamphetamine drug use, acute on chronic, present on admission -rule out osteomyelitis, gas gangrene necrotizing fasciitis. Antibiotic coverage for MRSA, Gram-positive, Gram-negative back sellae, and anaerobes-blood/ wound cultures pending. Patient seen April 2020 for cellulitis in ED -ED CONSULT: Dr. Gonzalez (ENT) performed I&D at bedside in the ED 15-20 cc of Pussy drainage removed, wound cultures sent for pathology, drain placed with 4x4s, Dr. Engel states that patient can follow up with him in his office in 1 week if there are no changes to condition. Change dressings when soiled as needed. -based on location of cellulitis (left side of neck), abscess, rapidly progressing erythema, surrounding cellulitis, IV drug use/high risk behavior making the patient high risk for poor outcomes with infective endocarditis: Ordered clindamycin 600 mg q.6 hours and Augmentin 875 mg p.o. b.i.d. :per up-to-date guidelines -patient admitted for risk factors for MRSA, signs of systemic toxicity-tachycardia, tachypnea -monitor for hyponatremia elevated CPK or AST, septicemia, shock, endocarditis. -wells criteria score: 1.5, Sofa score: 0 -patient for observation, vital signs q.4 hours, intake and output monitored Q shift, weight measure daily, diet: Regular, IV fluids: LR at 100 cc/hour. -daily labs ordered CBC, CMP, PT INR. Procalcitonin Qam 2. IV drug use, heroin/methamphetamine, acute on chronic, present on admission -monitor using clinical opiate withdrawal Scale(COWS)Score -Withdrawal symptom management of anxiety, irritability, restlessness-hydroxyzine 50 mg p.o. q.6 hours (max of 400 mg in 24 hours) or lorazepam 1 mg q.4 hours IV (max 6 mg in 24 hours) -for severe withdrawal, medically supervised consider -clonidine 0.1 mg Q 45-60 minutes for a max total of 4 doses (monitor blood pressure and heart rate) -Methadone 20mg BID-TID -abdominal cramping, diarrhea, nausea vomiting-Ondansetron 4mg IV Q8 Hrs, or Loperamide 4mg orally after first loose stool followed by 2mg after each loose stool (max 16mg/24hrs) -insomnia-trazodone 50 mg at bedtime -muscle legs and pain or headache-acetaminophen 650 mg q.6 hours, or baclofen 10 mg q.8 hours (max 60 mg daily), or hydrocodone 5 mg. -provide patient with a calm quiet environment and supportive and reassuring staff to help patient overcome most symptoms of acute opiate withdrawal and decrease the need for formal logical interventions, monitor patient for dehydration and electrolyte imbalances -case management consult and education regarding drug use cessation an outpatient resources for withdrawal and recovery. 3. Tobacco abuse, acute on chronic, present on admission -patient education regarding tobacco cessation Code status: Full code COVID PCR: Negative Designated surrogate decision maker:Spouse DVT/VTE prophylaxis: Lovenox 40 mg an SCDs Scores GCS [place] coma scale eye opening: Spontaneous [place] coma scale verbal response: Orientated Livia coma scale motor response: Obey commands Livia coma scale total score: 15 SOFA PaO2/FIO2: >=400 mmHg Platelets: >= 150 Bilirubin: < 1.2 mg/dL Hypotension: MAP >= 70 mmHg [place] Coma Scale: 15 Renal: < 1.2 mg/dL SOFA Score: 0 Wells' Criteria for PE Clinical signs and symptoms of DVT: No PE is #1 Dx or equally likely: No Heart rate > 100: Yes Immobilization at least 3 days or surg in previous 4 weeks: No History of PE or DVT: No Hemoptysis: No Malignancy w/Treatment within 6 months or palliative: No Wells' PE Score total: 1.5
[2020-12-18 22:13] LABS: Magnesium 2.2 mg/dL (1.6-2.3)
[2020-12-18] MEDS: LACTATED RINGERS 1,000 ML 100 ML IV (22:48)
[2020-12-18] MEDS: IBUPROFEN 600 MG TABLET PO (23:09)
[2020-12-18] MEDS: AMOXICILLIN/CLAV 875/125 MG 1 TAB PO (23:09)
[2020-12-18 23:19] LABS: D Dimer 925 ng/mL (<230)
--- NOTE | 2020-12-19 00:04 | PM.OP.1 ---
Operative Date/Time/Diagnoses Date of procedure: 12/18/20 Time of procedure: 21:30 Pre-op diagnosis: Left deep neck abscess consistent with IV drug abuse Post-op diagnosis: same Procedure & Clinicians Procedure: Complex incision and drainage left deep neck abscess Same procedure as scheduled: Yes Indications: 35-year-old male IV drug user presented with a 4-5 day history of increasing pain and swelling of the left neck at the site of prior injection. Exam and CT consistent with abscess, primarily within the SCM. Following discussion of the material risks benefits complications and alternatives, the patient elected to proceed. Surgeon: Amado Gonzalez Click Yes if Unassisted: Yes Anesthesia Type: Local Operative Notes Findings: Irregular abscess cavity deep within the left mid SCM, completely probed, drained, and irrigated, multiple cultures taken. Approximately 15 mL or more purulence evacuated. Surrounding induration and erythema approximately 10 cm. Closure Type: not applicable Specimen(s): other (Wound culture) Applied: drain(s) (Single Papi) Tourniquet time (min): 3 Procedure in detail: Following verbal consent, I cleansed the skin with alcohol and infiltrated widely with 1% lidocaine 1 100,000 epinephrine. Following sterile prep and drape an 18 gauge needle aspirated some arvind purulence. A 15 blade then performed a 3 cm incision until the abscess cavity was entered. I probed for any loculations with 1st a hemostat and then cotton-tipped applicator, expressed all the purulence, utilize suction, and then irrigated the cavity with Betadine. A half-inch Papi drain was placed deep within the cavity and sutured with nylon to the skin. A dressing was placed. Tolerated well without known complication. Complications: none Post-operative Condition: stable Disposition: Acute Care Plan for aftercare: Admitted to hospitalist service for IV antibiotics and wound care, follow-up as an outpatient for drain removal.
--- NOTE | 2020-12-19 00:09 | P.CONS_ITS ---
History of Present Illness Consult details Date Patient Seen: 12/18/20 Time Patient Seen: 21:30 Chief complaint: abscess on neck Reason for consult: Deep neck abscess, requiring incision and drainage Requesting provider: Jan Garcia Narrative: 35-year-old male IV drug user presented with a 4 to five-day history of progressive left neck pain and swelling with erythema at the site of prior injection. No airway obstruction. CT showed a 3.6 cm probable abscess within the mid SCM, images reviewed personally. Your note and prior ER admission note from 04/2020 reviewed with similar history but no acute abscess at that point. WBC 15 K, tachycardic and tachypneic. No other ENT complaints. Meds Home Medications and Allergies Home Medications Medication Instructions Recorded Confirmed Type buprenorphine HCl 8 mg SUBLINGUAL Q6H PRN MDD 4 tab 12/18/20 12/18/20 History Allergies Allergy/AdvReac Type Severity Reaction Status Date / Time No Known Drug Allergies Allergy Verified 05/07/20 22:31 Review of Systems Review of Systems ROS: Yes All systems reviewed with the patient and are negative except as otherwise documented Exam Vital Signs (past 8 hours): - 12/18/20 17:00 12/18/20 17:30 12/18/20 18:00 Temperature Pulse Rate 95 H 107 H 125 H Respiratory Rate 22 Blood Pressure 151/99 H Pulse Oximetry 97 96 97 12/18/20 18:10 12/18/20 18:11 12/18/20 18:30 Temperature Pulse Rate 132 H 119 H Respiratory Rate 21 Blood Pressure 151/99 H Pulse Oximetry 100 100 98 12/18/20 19:00 12/18/20 19:35 12/18/20 20:00 Temperature Pulse Rate 113 H 115 H 106 H Respiratory Rate 17 16 18 Blood Pressure Pulse Oximetry 94 12/18/20 20:30 12/18/20 21:00 12/18/20 21:30 Temperature Pulse Rate 95 H 96 H 99 H Respiratory Rate 17 15 21 Blood Pressure Pulse Oximetry 12/18/20 22:00 12/18/20 22:30 12/18/20 22:35 Temperature Pulse Rate 98 H 95 H 103 H Respiratory Rate 18 17 68 H Blood Pressure 126/92 H Pulse Oximetry 12/18/20 22:40 Temperature 97.8 F Pulse Rate 95 H Respiratory Rate 18 Blood Pressure 143/87 H Pulse Oximetry 98 Oxygen Delivery Method Room Air Narrative Exam Narrative: Well-developed well-nourished male, holding his head due to the neck pain. He is alert and oriented, no acute distress other than during the procedure secondary to pain. Head is normocephalic atraumatic, external ears are normal external nose is normal. Left neck 10 cm erythematous indurated area, exquisitely tender, no obvious fluctuance, centered over the mid to inferior SCM. See procedure note for details. Objective Labs Result Diagrams: 12/18/20 17:03 12/18/20 17:03 Labs: Laboratory Results - last 24 hr 12/18/20 12/18/20 12/18/20 16:20 17:03 17:03 WBC 15.4 H RBC 4.41 L Hgb 11.7 L Hct 35.4 L MCV 80.2 MCH 26.4 MCHC 33.0 RDW 13.3 Plt Count 324 Neut % (Auto) 71.6 Lymph % (Auto) 19.9 L [place] % (Auto) 7.0 Eos % (Auto) 1.0 L Baso % (Auto) 0.5 Neut # (Auto) 97087 H Lymph # (Auto) 3100 [place] # (Auto) 1100 H Eos # (Auto) 200 Baso # (Auto) 100 D-Dimer Sodium 136 L Potassium 3.8 Chloride 99 Carbon Dioxide 28 BUN 10 Creatinine 0.57 L Estimated GFR > 60.0 BUN/Creatinine Ratio 17.5 Glucose 116 H Lactate Calcium 9.2 Magnesium Total Bilirubin 0.4 AST 29 ALT 25 Alkaline Phosphatase 116 Total Protein 7.4 Albumin 3.9 Globulin 3.5 Albumin/Globulin Ratio 1.1 Procalcitonin 0.08 SARS-CoV-2 (PCR) Negative 12/18/20 12/18/20 12/18/20 17:03 17:03 23:03 WBC RBC Hgb Hct MCV MCH MCHC RDW Plt Count Neut % (Auto) Lymph % (Auto) [place] % (Auto) Eos % (Auto) Baso % (Auto) Neut # (Auto) Lymph # (Auto) [place] # (Auto) Eos # (Auto) Baso # (Auto) D-Dimer 925 H Sodium Potassium Chloride Carbon Dioxide BUN Creatinine Estimated GFR BUN/Creatinine Ratio Glucose Lactate 1.0 Calcium Magnesium 2.2 Total Bilirubin AST ALT Alkaline Phosphatase Total Protein Albumin Globulin Albumin/Globulin Ratio Procalcitonin SARS-CoV-2 (PCR) Assessment & Plan Assessment & Plan narrative: Assessment left D neck abscess consistent with IV drug use, status post successful incision and drainage, culture results pending. Plan: Admission for empiric IV antibiotics, await culture results, follow-up as outpatient for drain removal, call sooner with concerns. Patient seems motivated to seek help for his addiction.
[2020-12-19] MEDS: TRAZODONE 50 MG TABLET PO (00:48)
[2020-12-19 01:29] LABS: C-Reactive Protein Quant 11.4 mg/dL (<1.0)
[2020-12-19 02:00] VITALS: O2SAT 95
--- NOTE | 2020-12-19 02:11 | PM.DS.1 ---
History of Present Illness History of Present Illness Chief complaint: abscess on neck Narrative: Patient is a 35-year-old male Bennie Combs who presented to the ED with a chief complaint of abscess in swelling of the left neck. Patient states that he has been injecting heroin and methamphetamine recently into that area and developed redness and swelling and signs of infection approximately 4-5 days ago. He has not had any active fevers but has felt ill. He has pain at that area he denies any pain in the back of his neck other than that he has had discomfort from holding his head slightly turned from the swelling and discomfort. He denies any airway impingement, difficulty with breathing, no changes to voice, no stridor, wheezing, no shortness of breath or chest pain or pressure. He denies any nausea or vomiting. He denies any other GI or urinary symptoms. Patient states that he has had abscesses in multiple locations in the past. He was uncomfortable trying to drain it himself based on the location and came to the emergency department for assistance. Patient notes that he has been an IV drug user injecting heroin methadone since 2018 he reports that he had been clean for a year when he had a relapse a week and half ago has been injecting anywhere from a half a g to a g daily. He has been on Subutex recently but states he has not had his last several doses. He denies any other medications regularly. Patient does use tobacco regularly. He reports his last 0.5 g of injection was approximately at noon on 12/18/2020. Patient states that the aggressive neck pressure is relieved since having the abscess drained but is left with some stinging pain and has a mild headache denies chest pain shortness of breath, nausea, vomiting, diarrhea, body aches, chills, fever, neck pain is a 6/10. Patient is will thing down sandwiches and snack food without any difficulty of swallowing. Patient requested to be screened for HIV and hepatitis due to his IV high risk behavior. Patient's vital signs upon admit temp 98.7?, BP 151/99, HR 119 (tachycardic), RR 21 (tachypneic), 98% O2 saturation on room air. Labs: WBC 15.4, HGB 11.7, HCT 35.4, Na 136, creatinine 0.57, glucose 116. In ED patient qualified for SIRS criteria. CT soft left side of neck : 3.6 cm left sternocleidomastoid myositis and intramuscular abscess. Reactive adenopathy throughout the neck. Slight rightward shift due to SCM enlargement of the airway without airway compression. Partially imaged sinus disease. Dr. Gonzalez ENT did a bedside I&D of abscess in the ED, and placed a drain, collected wound cultures. Dr. Gonzalez stated that he did not need to consult on the patient while inpatient but rather the patient to follow with him in 1 week at his office for drain removal. Order dressing changes as needed when dressing becomes soiled. Discharge Providers Provider Date of admission: 12/18/20 21:25 Discharge Date: 12/19/20 Consults: 12/18/20 21:10 Consult to Physician Stat Comment: Consulting Provider: Amado Gonzalez Reason for consultation: abscess Has provider been notified: Yes 12/18/20 21:44 Consult to Dietitian, Adult Routine Comment: Reason For Exam: Substance abuse Discharge provider: MAYI Macias Summary Hospital Course Discharge Diagnosis: Cellulitis/abscess to left side of the neck Hospital Course: Patient received initial clindamycin dose in the ED, I&D of left sided neck abscess at the bedside in the ED by Dr. Gonzalez, with drain placement. At approximately 2:00 a.m. on the floor patient advised Maida MENDEZ that he was leaving Against Medical Advice and left the hospital. Nurse was able to obtain the pharmacy that he uses and his discharge antibiotics [facility] [place]: clindamycin and Augmentin. Status at Discharge Cognitive/behavioral status at discharge: oriented Functional status at discharge: independent ambulation Overall status at discharge: patient is back to baseline Exam Vital Signs (past 8 hours): - 12/18/20 18:30 12/18/20 19:00 12/18/20 19:35 Temperature Pulse Rate 119 H 113 H 115 H Respiratory Rate 21 17 16 Blood Pressure Pulse Oximetry 98 94 12/18/20 20:00 12/18/20 20:30 12/18/20 21:00 Temperature Pulse Rate 106 H 95 H 96 H Respiratory Rate 18 17 15 Blood Pressure Pulse Oximetry 12/18/20 21:30 12/18/20 22:00 12/18/20 22:30 Temperature Pulse Rate 99 H 98 H 95 H Respiratory Rate 21 18 17 Blood Pressure Pulse Oximetry 12/18/20 22:35 12/18/20 22:40 Temperature 97.8 F Pulse Rate 103 H 95 H Respiratory Rate 68 H 18 Blood Pressure 126/92 H 143/87 H Pulse Oximetry 98 Oxygen Delivery Method Room Air Narrative Exam Narrative: Not completed as patient left Against Medical Advice Objective Labs Result Diagrams: 12/18/20 17:03 12/18/20 17:03 Labs: Laboratory Results - last 24 hr 12/18/20 12/18/20 12/18/20 16:20 17:03 17:03 WBC 15.4 H RBC 4.41 L Hgb 11.7 L Hct 35.4 L MCV 80.2 MCH 26.4 MCHC 33.0 RDW 13.3 Plt Count 324 Neut % (Auto) 71.6 Lymph % (Auto) 19.9 L Lamar % (Auto) 7.0 Eos % (Auto) 1.0 L Baso % (Auto) 0.5 Neut # (Auto) 00068 H Lymph # (Auto) 3100 Lamar # (Auto) 1100 H Eos # (Auto) 200 Baso # (Auto) 100 D-Dimer Sodium 136 L Potassium 3.8 Chloride 99 Carbon Dioxide 28 BUN 10 Creatinine 0.57 L Estimated GFR > 60.0 BUN/Creatinine Ratio 17.5 Glucose 116 H Lactate Calcium 9.2 Magnesium Total Bilirubin 0.4 AST 29 ALT 25 Alkaline Phosphatase 116 C-Reactive Protein Total Protein 7.4 Albumin 3.9 Globulin 3.5 Albumin/Globulin Ratio 1.1 Procalcitonin 0.08 SARS-CoV-2 (PCR) Negative 12/18/20 12/18/20 12/18/20 17:03 17:03 17:03 WBC RBC Hgb Hct MCV MCH MCHC RDW Plt Count Neut % (Auto) Lymph % (Auto) Lamar % (Auto) Eos % (Auto) Baso % (Auto) Neut # (Auto) Lymph # (Auto) Lamar # (Auto) Eos # (Auto) Baso # (Auto) D-Dimer Sodium Potassium Chloride Carbon Dioxide BUN Creatinine Estimated GFR BUN/Creatinine Ratio Glucose Lactate 1.0 Calcium Magnesium 2.2 Total Bilirubin AST ALT Alkaline Phosphatase C-Reactive Protein 11.4 H Total Protein Albumin Globulin Albumin/Globulin Ratio Procalcitonin SARS-CoV-2 (PCR) 12/18/20 23:03 WBC RBC Hgb Hct MCV MCH MCHC RDW Plt Count Neut % (Auto) Lymph % (Auto) Lamar % (Auto) Eos % (Auto) Baso % (Auto) Neut # (Auto) Lymph # (Auto) Lamar # (Auto) Eos # (Auto) Baso # (Auto) D-Dimer 925 H Sodium Potassium Chloride Carbon Dioxide BUN Creatinine Estimated GFR BUN/Creatinine Ratio Glucose Lactate Calcium Magnesium Total Bilirubin AST ALT Alkaline Phosphatase C-Reactive Protein Total Protein Albumin Globulin Albumin/Globulin Ratio Procalcitonin SARS-CoV-2 (PCR) PENDING SALE TO [facility] Medical History Heroin abuse IVDU (intravenous drug user) Methamphetamine abuse Opioid use disorder Surgical History No history of previous surgery Family History Father Diabetes mellitus Mother Skin cancer Social History household members: spouse and children Smoking Status: Current every day smoker alcohol intake: former Discharge Plan Discharge Plan Patient Disposition: Left Against Medical Advice Discharge orders & Medications Prescriptions: New amoxicillin-pot clavulanate [Augmentin] 875-125 mg Tablet 1 tab PO BID Qty: 14 RF: 0 clindamycin HCl 300 mg capsule 300 mg PO TID Qty: 21 RF: 0 Discontinued buprenorphine HCl 8 mg tablet, sublingual 8 mg SUBLINGUAL Q6H MDD 4 tab PRN (Reason: addiction) RF: 0 Visit Report/Discharge Packet Instructions: Opioid Use Disorder (Alternative Therapy), DI for Incision and Drainage of a Skin Abscess
--- NOTE | 2020-12-19 02:50 | PC.NURSE ---
At approx 0215, pt was found OOB with IVF disconnected from midline and IV pump turned off. Pt admitted to removing them on own. When questioned, pt said I just want to go down to my truck for a cigarette. Pt informed that if he left the floor, the IV access would have to be removed and he would be discharged as AMA and if he needed to return to the floor he would have to be readmitted via ED and that readmission was not guaranteed. This RN gave the pt the option of a nicotine patch to curb cravings, as pt reports being a 1 PPD smoker. Pt initially acquiesced, then changed mind a few minutes later. This RN informed the patient of the AMA process and pt agreed. Provider informed, Rx to be sent to pharmacy of choice. Pt given written discharge instructions and signed AMA as well. This RN offered to change dressing prior to patient leaving, but patient refused. My girl's a nurse. Not an actual nurse, but y'know. She's done this shit before. Pt attempted to convince this RN to allow him to leave with the midline in place I have some bags of fluid at home, can I just keep this in? Pt reminded of policies and allowed removal of midline at 0235, tolerated well. Pt educated fully on dangers of leaving AMA, including possibility of severe infection and bodily harm. Pt educated on wound care and danger signs and symptoms to look for and instructed to picker feeder medication as soon as possible to begin treatment. Pt escorted off-unit by security at 0240. All belongings accounted for.
== END 2020-12-19 02:40 | disposition left against medical advice (07) ==
LOC: ED 21:11 → AC 12-19 02:31
PROVIDERS: Emergency Medicine; Admitting Provider Nurse Practitioner Family; Emergency Provider Emergency Medicine; Referring Provider Emergency Medicine; Visit Provider Nurse Practitioner Family
DX: L03.221 Cellulitis of neck (principal); L02.11 Cutaneous abscess of neck; F17.210 Nicotine dependence, cigarettes, uncomplicated; F15.10 Other stimulant abuse, uncomplicated; F11.10 Opioid abuse, uncomplicated; Z20.822 Contact with and (suspected) exposure to COVID-19
CPT/HCPCS: 10060; 36415; 70491; 80053; 83605; 83735; 84145; 85025; 85379; 86140; 87040; 87070; 87075; 87077; 87186; 87205; 87635; 99284; C9803; G0378; J1885